=== PATIENT | male | born 1960 | race Caucasian/White ===

== ENCOUNTER 2017-04-12 16:56 | Emergency (ER) | payer MEDICAID, SELFPAY ==
[~2017-04-12] VITALS: Ht 175.3 cm; Wt 57.1 kg
[2017-04-12] MEDS ORDERED: SODIUM CHLORIDE 0.9% 1,000ML IVBOLUS ONE (17:30)
[2017-04-12] MEDS ORDERED: SODIUM CHLORIDE FLUSH 10ML SYR IVF ONE (17:30)
[2017-04-12 17:37] LABS: ASPARTATE AMINO TRANSFERASE 49 U/L (15-37); BLOOD UREA NITROGEN 5 mg/dL (7-18)
[2017-04-12 17:52] LABS: HEMATOCRIT 49.4 % (39.2-51.8); HEMOGLOBIN 17.2 g/dL (13.7-18.0); WHITE BLOOD COUNT 6.8 x10^3/uL (3.4-10)
[2017-04-12] MEDS ORDERED: ONDANSETRON 2MG/ML, 2ML ONE (17:54)
[2017-04-12] MEDS ORDERED: LORazepam 2 MG/ML, 1ML IVPush ONE (18:30)
[2017-04-12] MEDS ORDERED: ONDANSETRON 2MG/ML, 2ML IVPush ONE (19:00)
[2017-04-12] MEDS ORDERED: LORazepam 2 MG/ML, 1ML ONE (19:02)
[2017-04-12 19:06] VITALS: BP 165/85
== END 2017-04-12 20:03 | disposition home or self-care (01) ==
LOC: ED 19:42
DX: R11.2 Nausea with vomiting, unspecified (principal); E86.0 Dehydration; R51 Headache; E11.9 Type 2 diabetes mellitus without complications; F17.200 Nicotine dependence, unspecified, uncomplicated
CPT/HCPCS: 36415; 70450; 80053; 81001; 83690; 85025; 96361; 96374; 96375; 99285; J2060; J2405; J7030

== ENCOUNTER 2017-05-15 23:48 | Observation (INO) | payer MEDICAID ==
[~2017-05-15] VITALS: Ht 182.9 cm; Wt 65.9 kg
[2017-05-16 00:15] LABS: HEMATOCRIT 48.9 % (39.2-51.8); WHITE BLOOD COUNT 5.3 x10^3/uL (3.4-10)
[2017-05-16 00:27] LABS: ASPARTATE AMINO TRANSFERASE 33 U/L (15-37); BLOOD UREA NITROGEN 4 mg/dL (7-18)
[2017-05-16 00:38] LABS: DAU SCREEN DISCLAIMER
[2017-05-16 00:49] LABS: ACETAMINOPHEN < 2 mcg/mL (10-30)
[2017-05-16] MEDS ORDERED: IPRA12.9 INH (13:22)
[2017-05-16] MEDS ORDERED: OXYC-307 PO (13:22)
[2017-05-16] MEDS ORDERED: ONDANSETRON ODT 8 MG ONE (13:37)
[2017-05-16] MEDS ORDERED: ONDANSETRON ODT 8 MG PO ONE (14:00)
[2017-05-16] MEDS ORDERED: LORazepam 1MG TABLET PO ONE (15:00)
[2017-05-16] MEDS ORDERED: LORazepam 1MG TABLET ONE (15:08)
[2017-05-16] MEDS ORDERED: DEXTROSE 50%, 50ML SYRINGE IVPush PRN (16:30)
[2017-05-16] MEDS ORDERED: GLUCAGON 1 MG IM PRN (16:30)
[2017-05-16] MEDS ORDERED: DEXTROSE 4 GM TAB.CHEW PO PRN (16:30)
[2017-05-16] MEDS ORDERED: TEMAZEPAM 15 MG CAPSULE PO PRN (16:30)
[2017-05-16] MEDS ORDERED: ACETAMINOPHEN 325 MG TABLET PO PRN (16:30)
[2017-05-16] MEDS ORDERED: INSULIN REGULAR 100 UNITS/ML, 3ML VIAL ONE (17:03)
[2017-05-16] MEDS: INSULIN ASPART 100 UNITS/ML, PEN SQ-INSULIN SCH ×2 (17:08→21:19)
[2017-05-16 17:30] VITALS: BP 155/91
[2017-05-16] MEDS ORDERED: IPRATROPIUM 0.5 MG/2.5 ML INHA NPPB PRN (17:30)
[2017-05-16] MEDS: ONDANSETRON ODT 4 MG PO PRN (18:32)
[2017-05-16] MEDS: LORazepam 1MG TABLET PO PRN ×2 (18:32→21:45)
[2017-05-16] MEDS: ENOXAPARIN 40 MG/0.4 ML SQ SCH (18:32)
[2017-05-16 20:02] VITALS: BP 155/82
[2017-05-16] MEDS ORDERED: OLANZAPINE 5 MG TABLET PO SCH (21:00)
[2017-05-16] MEDS ORDERED: SODIUM CHLORIDE FLUSH 10ML SYR IVF SCH (21:00)
[2017-05-16] MEDS ORDERED: LACTULOSE 10 GM/15 ML UDC PO SCH (21:00)
[2017-05-16 21:30] VITALS: BP 136/74
[2017-05-16] MEDS: OLANZAPINE 5 MG TABLET PO SCH (21:44)
[2017-05-17] MEDS ORDERED: ASPIRIN 81 MG TABLET EC PO SCH (06:00)
[2017-05-17 07:43] VITALS: BP 123/81
[2017-05-17] MEDS: INSULIN ASPART 100 UNITS/ML, PEN SQ-INSULIN SCH ×4 (07:54→21:07)
[2017-05-17] MEDS: ONDANSETRON ODT 4 MG PO PRN (13:20)
[2017-05-17] MEDS: LORazepam 1MG TABLET PO PRN ×2 (13:20→18:13)
[2017-05-17] MEDS: ENOXAPARIN 40 MG/0.4 ML SQ SCH (17:52)
[2017-05-17 19:47] VITALS: BP 108/69
[2017-05-17] MEDS: OLANZAPINE 5 MG TABLET PO SCH (21:04)
== END 2017-05-17 21:41 ==
LOC: ED 23:59 → EDIP 05-16 13:35 → 3E 05-16 17:31
PROVIDERS: ADMIT Internal Medicine; ATTEND Internal Medicine
DX: R45.851 Suicidal ideations (principal); F31.9 Bipolar disorder, unspecified; F41.1 Generalized anxiety disorder; F25.9 Schizoaffective disorder, unspecified; E11.65 Type 2 diabetes mellitus with hyperglycemia; E87.1 Hypo-osmolality and hyponatremia; F10.220 Alcohol dependence with intoxication, uncomplicated; J44.9 Chronic obstructive pulmonary disease, unspecified; F17.210 Nicotine dependence, cigarettes, uncomplicated; Z86.73 Personal history of transient ischemic attack (TIA), and cerebral infarction without residual deficits; Z82.3 Family history of stroke; Z91.19 Patient's noncompliance with other medical treatment and regimen
CPT/HCPCS: 36415; 80053; 80307; 80329; 82962; 85025; 85610; 94640; 96372; 99285; G0378; J1650; J1815; Q0162; J7644; G0479; G0480

== ENCOUNTER → 2017-07-01 | Outpatient (CLI) | payer MEDICAID ==
[~2017-07-01] MED LIST: ALBU18HF INH; ARIPIPRAZOLE; HYDROXYZINE; INSU100V8 SQ; IPRA12.9 INH; MELOXICAM; METHYLPREDNISOLONE; NOVOLIN; ONDANSETRON; OXYC-307 PO; TIZANIDINE; [UNRECOGNIZED DRUG - OTHER]
[2017-07-01 14:16] LABS: HEMATOCRIT 46.9 % (39.2-51.8); HEMOGLOBIN 16.2 g/dL (13.7-18.0); WHITE BLOOD COUNT 9.4 x10^3/uL (3.4-10)
[2017-07-01 14:29] LABS: ASPARTATE AMINO TRANSFERASE 20 U/L (15-37); BLOOD UREA NITROGEN 11 mg/dL (7-18)
[2017-07-01 14:48] LABS: HIV 1&2 ANTIBODY SCREEN Nonreactive (Nonreactive); HIV-1 p24 ANTIGEN Nonreactive (Nonreactive)
== END | disposition home or self-care (01) ==
LOC: STAR 13:04
PROVIDERS: ATTEND Orthopaedic Surgery
DX: Z01.818 Encounter for other preprocedural examination (principal); M16.12 Unilateral primary osteoarthritis, left hip; E11.9 Type 2 diabetes mellitus without complications; R79.1 Abnormal coagulation profile
CPT/HCPCS: 36415; 80053; 83036; 85025; 85610; 85730; 86703; 87081; 87899; 93005; G0435

== ENCOUNTER 2017-07-08 11:30 | Inpatient (IN) | payer MEDICAID ==
[~2017-07-08] VITALS: Ht 175.3 cm; Wt 61.6 kg
[2017-07-15] MEDS ORDERED: VANCOMYCIN PER PHARMACY MC STA (07:48)
[2017-07-15] MEDS ORDERED: LACTATED RINGERS 1,000 ML IV SCH (07:51)
[2017-07-15] MEDS ORDERED: OxyconTIN ER 10 MG TAB.ER PO ONE (08:00)
[2017-07-15] MEDS ORDERED: GABAPENTIN 300 MG CAPSULE PO ONE (08:00)
[2017-07-15] MEDS ORDERED: ACETAMINOPHEN 500 MG TABLET PO ONE (08:00)
[2017-07-15] MEDS ORDERED: LIDOCAINE 1%, 2ML ONE (08:11)
[2017-07-15 08:12] VITALS: BP 148/82
[2017-07-15] MEDS ORDERED: LIDOCAINE 1%, 2ML SQ PRN (08:30)
[2017-07-15] MEDS ORDERED: ABILIFY PO (08:32)
[2017-07-15] MEDS ORDERED: HYDROXYZINE PO (08:32)
[2017-07-15] MEDS ORDERED: MELOXICAM PO (08:32)
[2017-07-15] MEDS ORDERED: januvia PO (08:32)
[2017-07-15] MEDS ORDERED: INSU100V5 SQ-INSULIN (08:32)
[2017-07-15] MEDS ORDERED: TIZANIDINE PO (08:32)
[2017-07-15] MEDS ORDERED: [UNRECOGNIZED DRUG - OTHER] PO (08:32)
[2017-07-15] MEDS ORDERED: CYMBALTA PO (08:32)
[2017-07-15] MEDS ORDERED: VANCOMYCIN 1,300 MG in SODIUM CHLORIDE 0.9% 250 ML IV ONE (08:39)
[2017-07-15] MEDS ORDERED: PNEUMOCOCCAL 23 VACCINE IM-VACC ONE ×2 (09:00→19:00)
[2017-07-15] MEDS ORDERED: FLU VACC QS2017-18 (36MOS+) UP/PF 0.5 ML IM-VACC ONE ×2 (09:00→19:00)
[2017-07-15] MEDS ORDERED: PHARMACOKINETIC CONSULTATION MC ONE (09:00)
[2017-07-15] MEDS ORDERED: HYDROmorphone 2 MG/ML, 1ML ONE ×2 (09:05→10:02)
[2017-07-15] MEDS: HYDROmorphone 1 MG/ML, 1ML IV PRN ×2 (09:09→10:09)
[2017-07-15] MEDS ORDERED: HYDROmorphone 1 MG/ML, 1ML IV ONE (10:30)
[2017-07-15] MEDS ORDERED: ONDA4TAB7 PO (10:50)
[2017-07-15] MEDS ORDERED: HYDR25TA11 PO (10:50)
[2017-07-15] MEDS ORDERED: DULO60CA7 PO (10:50)
[2017-07-15] MEDS ORDERED: ARIP10TA33 PO (10:50)
[2017-07-15] MEDS ORDERED: SITA50TA PO (10:50)
[2017-07-15] MEDS ORDERED: TIZA4TAB PO (10:50)
[2017-07-15] MEDS ORDERED: ERGO500017 PO (10:50)
[2017-07-15] MEDS ORDERED: TRIA15CR3 TP (10:50)
[2017-07-15] MEDS ORDERED: PROP10TA PO (10:50)
[2017-07-15] MEDS ORDERED: ALBU90AE INH (10:50)
[2017-07-15] MEDS ORDERED: ACETAMINOPHEN 500 MG TABLET ONE (12:16)
[2017-07-15] MEDS ORDERED: GABAPENTIN 300 MG CAPSULE ONE (12:16)
[2017-07-15] MEDS ORDERED: OxyconTIN ER 10 MG TAB.ER ONE (12:17)
[2017-07-15] MEDS ORDERED: TRANEXAMIC ACID 100 MG/ML, 10ML ONE ×4 (12:33)
[2017-07-15] MEDS ORDERED: KETOROLAC 60 MG/2 ML ONE (12:33)
[2017-07-15] MEDS ORDERED: EPINEPHRINE 1 MG/ML, 1ML ONE (12:34)
[2017-07-15] MEDS ORDERED: ROPivacaine/PF 0.2%, 10 ML ONE (12:34)
[2017-07-15] MEDS ORDERED: SODIUM CHLORIDE 0.9% 100 ML ONE (12:34)
[2017-07-15] MEDS ORDERED: SUFentanil 50 MCG/ML, 1ML ONE (12:50)
[2017-07-15] MEDS ORDERED: MIDAZOLAM 1 MG/ML, 2ML ONE (12:50)
[2017-07-15] MEDS ORDERED: CEFAZOLIN 1,000 MG ONE ×2 (12:51→12:52)
[2017-07-15] MEDS ORDERED: LIDOCAINE-MPF 2% ,5ML ONE (12:53)
[2017-07-15] MEDS ORDERED: PROPOFOL 10 MG/ML, 20ML ONE (12:53)
[2017-07-15] MEDS ORDERED: PHENYLEPHRINE 10 MG/ML ONE (13:49)
[2017-07-15] MEDS ORDERED: KETAMINE 10 MG/ML, 20ML ONE (13:49)
[2017-07-15] MEDS ORDERED: ROCURONIUM 10 MG/ML,10ML ONE (13:49)
[2017-07-15] MEDS ORDERED: ONDANSETRON 2MG/ML, 2ML IV PRN (14:00)
[2017-07-15] MEDS ORDERED: DEXTROSE 50%, 50ML SYRINGE IVPush PRN (14:00)
[2017-07-15] MEDS ORDERED: MAGNESIUM HYDROXIDE 8%, 30ML UDC PO PRN (14:00)
[2017-07-15] MEDS ORDERED: GLUCAGON 1 MG IM PRN (14:00)
[2017-07-15] MEDS ORDERED: ACETAMINOPHEN 650 MG/20.3 ML UDC PO PRN (14:00)
[2017-07-15] MEDS ORDERED: ALUMINUM/MAG/SIMETHICONE 30 ML UDC PO PRN (14:00)
[2017-07-15] MEDS ORDERED: HYDROmorphone 1 MG/ML, 1ML IV PRN ×2 (14:00→15:00)
[2017-07-15] MEDS ORDERED: DEXTROSE 4 GM TAB.CHEW PO PRN (14:00)
[2017-07-15] MEDS ORDERED: SENNA/DOCUSATE TABLET PO PRN (14:00)
[2017-07-15] MEDS ORDERED: DIPHENHYDRAMINE 25 MG CAPSULE PO PRN (14:00)
[2017-07-15] MEDS ORDERED: DIAZEPAM 5 MG TABLET PO PRN (14:00)
[2017-07-15] MEDS ORDERED: ONDANSETRON 4 MG TABLET PO PRN (14:00)
[2017-07-15] MEDS ORDERED: DEXAMETHASONE 4 MG/ML, 1ML ONE ×2 (14:05)
[2017-07-15] MEDS ORDERED: OXYcodone 5 MG/5 ML ORAL.SOL UDC PO PRN (15:00)
[2017-07-15] MEDS ORDERED: PROMETHAZINE 25 MG/ML, 1ML IV PRN (15:00)
[2017-07-15] MEDS ORDERED: ALBUTEROL SULFATE 2.5 MG/3 ML NPPB PRN ×2 (15:00→18:30)
[2017-07-15] MEDS ORDERED: hydrALAzine 20 MG/ML, 1ML IV PRN (15:00)
[2017-07-15] MEDS ORDERED: ONDANSETRON 2MG/ML, 2ML IVPush PRN (15:00)
[2017-07-15] MEDS ORDERED: FENTANYL PF 100 MCG/2ML IV PRN (15:00)
[2017-07-15] MEDS ORDERED: LABETALOL 5MG/ML, 20ML IV PRN (15:00)
[2017-07-15] MEDS ORDERED: ACETAMINOPHEN 325 MG TABLET PO PRN (15:00)
[2017-07-15] MEDS ORDERED: MEPERIDINE/PF 25MG/0.5ML IVPush PRN (15:00)
[2017-07-15] MEDS ORDERED: ONDANSETRON 2MG/ML, 2ML ONE ×2 (15:20)
[2017-07-15] MEDS: INSULIN REGULAR 100 UNITS/ML, 3ML VIAL SQ-INSULIN SCH ×4 (16:00→21:57)
[2017-07-15] MEDS ORDERED: HYDROmorphone 1 MG/ML, 1ML ONE (16:11)
[2017-07-15] MEDS ORDERED: OXYcodone 5 MG/5 ML ORAL.SOL UDC ONE (16:12)
[2017-07-15] MEDS ORDERED: TRANEXAMIC ACID 1,000 MG in SODIUM CHLORIDE 0.9% 100 ML IVPB ONE (17:35)
[2017-07-15 17:48] VITALS: BP 121/70
[2017-07-15] MEDS ORDERED: TIZANIDINE 4MG TABLET PO PRN (18:30)
[2017-07-15] MEDS: NS + 20MEQ KCL 1,000 ML IV SCH (18:30)
[2017-07-15 19:00] VITALS: BP 133/67
[2017-07-15] MEDS: SODIUM CHLORIDE FLUSH 10ML SYR IVF SCH (19:33)
[2017-07-15] MEDS: DOCUSATE 100 MG CAPSULE PO SCH (20:14)
[2017-07-15] MEDS: OXYcodone IR 5MG TABLET PO PRN (20:14)
[2017-07-15] MEDS: CEFAZOLIN PMX 1GM/50ML 50 ML IVPB SCH (21:57)
[2017-07-15 23:43] VITALS: BP 108/66
[2017-07-16] MEDS: OXYcodone IR 5MG TABLET PO PRN ×4 (00:26→14:03)
[2017-07-16 03:10] VITALS: BP 103/57
[2017-07-16] MEDS ORDERED: DEXAMETHASONE 4 MG/ML, 1ML IVPush SCH (06:00)
[2017-07-16] MEDS ORDERED: ASPIRIN 81 MG TABLET EC PO SCH (06:00)
[2017-07-16] MEDS ORDERED: PROPRANOLOL 10 MG TABLET PO SCH (06:00)
[2017-07-16] MEDS: CEFAZOLIN PMX 1GM/50ML 50 ML IVPB SCH (06:14)
[2017-07-16] MEDS: INSULIN REGULAR 100 UNITS/ML, 3ML VIAL SQ-INSULIN SCH ×6 (08:21→15:34)
[2017-07-16] MEDS: DOCUSATE 100 MG CAPSULE PO SCH (08:22)
[2017-07-16] MEDS: SODIUM CHLORIDE FLUSH 10ML SYR IVF SCH (08:26)
[2017-07-16] MEDS: NS + 20MEQ KCL 1,000 ML IV SCH (08:31)
[2017-07-16 08:33] VITALS: BP 119/80
[2017-07-16] MEDS ORDERED: ARIPIPRAZOLE 10 MG TABLET PO SCH (09:00)
[2017-07-16] MEDS ORDERED: TAMSULOSIN 0.4 MG CAP.ER.24H PO SCH (09:00)
[2017-07-16] MEDS ORDERED: DULOXETINE 30 MG CAPSULE.DR PO SCH (09:00)
[2017-07-16] MEDS ORDERED: SITAGLIPTIN 50MG TABLET PO SCH (09:00)
[2017-07-16] MEDS ORDERED: KETOROLAC 30 MG/1 ML IV SCH ×2 (14:00→16:00)
[2017-07-16 14:55] VITALS: BP 121/67
[2017-07-16] MEDS ORDERED: OXYC5CAP2 PO (16:11)
[2017-07-16] MEDS ORDERED: ASPI-621 PO (16:12)
[2017-07-16] MEDS ORDERED: ONDA4TAB10 PO (16:12)
[2017-07-16] MEDS ORDERED: DOCU-131 PO (16:12)
[2017-07-16] MEDS ORDERED: CELE200C PO (16:13)
[2017-07-16] MEDS ORDERED: TRAM50TA2 PO (16:14)
[2017-07-16] MEDS ORDERED: DIAZ5TAB PO (16:14)
[2017-07-16 16:50] VITALS: BP 132/68
[2017-07-21] MEDS ORDERED: ERGOCALCIFEROL 50,000 UNIT CAPSULE PO SCH (09:00)
== END 2017-07-16 17:00 | disposition home or self-care (01) | DRG 470 ==
LOC: ORIP 07-15 07:32 → 4NOR 07-15 17:33
PROVIDERS: ADMIT Orthopaedic Surgery; ATTEND Orthopaedic Surgery
PROC: 0SRB0JA Replacement of Left Hip Joint with Synthetic Substitute, Uncemented, Open Approach (ICD-10-PCS; principal; 2017-07-15 13:30)
DX: M87.852 Other osteonecrosis, left femur (principal); E11.9 Type 2 diabetes mellitus without complications; M16.12 Unilateral primary osteoarthritis, left hip; M21.70 Unequal limb length (acquired), unspecified site; Z87.891 Personal history of nicotine dependence
CPT/HCPCS: 36415; 72170; 82962; 85014; 85018; 86850; 86900; C1713; J0171; J0690; J1100; J1170; J1815; J1885; J2250; J2405; J2704; J2795; J3370; J3480; J3490; C1776; J2370; J7050; J7120

== ENCOUNTER 2017-07-19 14:44 | Emergency (ER) | payer MEDICAID ==
[~2017-07-19] VITALS: Ht 175.3 cm; Wt 62.0 kg
[~2017-07-19 14:44] MED LIST changes: +ABILIFY PO; +ALBU90AE INH; +ARIP10TA33 PO; +ASPI-621 PO; +CELE200C PO; +CYMBALTA PO; +DIAZ5TAB PO; +DOCU-131 PO; +DULO60CA7 PO; +ERGO500017 PO; +HYDR25TA11 PO; +HYDROXYZINE PO; +INSU100V5 SQ-INSULIN; +MELOXICAM PO; +ONDA4TAB10 PO; +ONDA4TAB7 PO; +OXYC5CAP2 PO; +PROP10TA PO; +SITA50TA PO; +TIZA4TAB PO; +TIZANIDINE PO; +TRAM50TA2 PO; +TRIA15CR3 TP; +[UNRECOGNIZED DRUG - OTHER] PO; +januvia PO
[2017-07-19 15:09] VITALS: BP 138/78
[2017-07-19 15:36] LABS: HEMATOCRIT 33.1 % (39.2-51.8); HEMOGLOBIN 11.5 g/dL (13.7-18.0); WHITE BLOOD COUNT 5.1 x10^3/uL (3.4-10)
[2017-07-19 15:45] LABS: BLOOD UREA NITROGEN 7 mg/dL (7-18)
[2017-07-19 15:48] LABS: ACETAMINOPHEN < 2 mcg/mL (10-30)
== END 2017-07-19 17:49 | disposition home or self-care (01) ==
LOC: ED 15:53
DX: Z00.00 Encounter for general adult medical examination without abnormal findings (principal); E11.9 Type 2 diabetes mellitus without complications; F17.200 Nicotine dependence, unspecified, uncomplicated
CPT/HCPCS: 36415; 80048; 80307; 80329; 82040; 85025; 93005; 99285; G0480